=== PATIENT | female | born 2000 | race Native Hawaiian/Other Pacific Islander ===

== ENCOUNTER 2022-04-14 00:54 | Emergency (ER) | payer OTHER ==
[~2022-04-14] VITALS: Ht 152.4 cm; Wt 41.7 kg
[2022-04-14 02:20] VITALS: BP 118/71; TEMP 97.5
== END 2022-04-14 02:45 | disposition home or self-care (01) ==
LOC: ED 00:54
DX: S60.022A Contusion of left index finger without damage to nail, initial encounter (principal); S60.411A Abrasion of left index finger, initial encounter; W23.0XXA Caught, crushed, jammed, or pinched between moving objects, initial encounter; Y92.89 Other specified places as the place of occurrence of the external cause
CPT/HCPCS: 90471; 90715; 96372; 99283; J1885